=== PATIENT | male | born 1950 | race Caucasian/White ===

== ENCOUNTER 2016-10-17 19:18 | Inpatient (IN) | payer OTHER ==
[~2016-10-17] VITALS: Ht 162.6 cm; Wt 59.0 kg
[2016-10-17] MEDS ORDERED: NS 1000ml 1,600 ML IVLG ONE (19:30)
--- NOTE | 2016-10-17 19:49 | Emergency Room Report ---
History of Present Illness General Chief Complaint: Abnormal Labs Source: Medical Record (ZEYNEP RAI D.O.) Present Illness HPI Patient present with complaints of abnormal blood work Patient from nursing facility has a tracheostomy and vent dependent Patient was found to have a high white blood for count Patient himself is nonverbal this does significantly limit the history of present illness There was no reports of vomiting or diarrhea Patient has a feeding tube in place Unknown regarding fever unknown regarding rash (ZEYNEP RAI D.O.) Allergies: Coded Allergies: No Known Allergies (Unverified , 10/17/16) Patient History Limited by: medical condition Pertinent Family History: unable to obtain Reviewed Nursing Documentation: PMH: Agreed, PSxH: Agreed (ZEYNEP RAI D.O.) Nursing Documentation-PMH Hx Diabetes: Yes Hx Seizures: Yes (ZEYNEP RAI D.O.) Review of Systems All Other Systems: limited - Other than the ones mentioned in the history of present illness all others are reviewed however they do stay limited due to the patient's mental status (ZEYNEP RAI D.O.) Physical Exam Vital Signs Date Time Temp Pulse Resp B/P Pulse Ox O2 Delivery O2 Flow Rate FiO2 10/17/16 19:19 117 14 103/67 98 Mechanical Ventilator 5.0 10/17/16 19:32 40 Sp02 EP Interpretation: reviewed, normal General Appearance: other - unresponsive, Chronically Ill Head: other - Patient has multiple deformities of the scalp Eyes: bilateral eye other - Patient has lack of corneal reflex ENT: no angioedema, other - Tracheostomy midline Neck: other - No obvious step-offs, patient does not move neck to command Respiratory: crackles - diffusely in both lower lobes Cardiovascular #1: no edema, no gallop, tachycardia Gastrointestinal: other - Mildly distended however soft feeding tube in place bowel sounds noted, Musculoskeletal: other - Patient's chronic debilitated not moving extremities to stimuli Neurologic: other - GCS is 3 unresponsive, no verbal or physical stimuli Skin: pallor Lymphatic: no adenopathy (ZEYNEP RAI D.O.) Medical Decision Making Diagnostic Impression: Primary Impression: Leukocytosis Additional Impressions: Pneumonia Severe sepsis ER Course Patient is a fairly complex patient with multiple differential to consideration including but not limited to cardiac cardiopulmonary and vascular emergencies Given the patient's presentation IV hydration and antibiotic, along with septic workup was initiated Patient has high white blood cell count lactic acid is 5 Patient had evidence of organ injury Placing the patient in to severe sepsis criteria Patient limited to high level of care for continued care Labs Test 10/17/16 19:30 10/17/16 20:05 White Blood Count 26.3 K/UL (4.8-10.8) Red Blood Count 2.59 M/UL (4.70-6.10) Hemoglobin 9.2 G/DL (14.2-18.0) Hematocrit 27.0 % (42.0-52.0) Mean Corpuscular Volume 104 FL (80-99) Mean Corpuscular Hemoglobin 35.8 PG (27.0-31.0) Mean Corpuscular Hemoglobin Concent 34.3 G/DL (32.0-36.0) Red Cell Distribution Width 18.4 % (11.6-14.8) Platelet Count 252 K/UL (150-450) Mean Platelet Volume 6.6 FL (6.5-10.1) Neutrophils (%) (Auto) % (45.0-75.0) Lymphocytes (%) (Auto) % (20.0-45.0) Monocytes (%) (Auto) % (1.0-10.0) Eosinophils (%) (Auto) % (0.0-3.0) Basophils (%) (Auto) % (0.0-2.0) Prothrombin Time 13.0 SEC (9.30-11.50) Prothromb Time International Ratio 1.3 (0.9-1.1) Activated Partial Thromboplast Time 24 SEC (23-33) Sodium Level 153 mEQ/L (135-145) Potassium Level 3.4 mEQ/L (3.4-4.9) Chloride Level 106 mEQ/L (98-107) Carbon Dioxide Level 30 mEQ/L (20-30) Anion Gap 17 (5-15) Blood Urea Nitrogen 75 mg/dL (7-23) Creatinine 0.7 mg/dL (0.7-1.2) Estimat Glomerular Filtration Rate > 60 mL/min (>60) Glucose Level 79 mg/dL (74-106) Lactic Acid Level 5.00 mmol/L (0.66-2.22) Calcium Level 9.2 mg/dL (8.6-10.2) Phosphorus Level 1.8 mg/dL (2.5-4.8) Magnesium Level 2.0 mg/dL (1.7-2.5) Total Bilirubin 0.4 mg/dL (0.0-1.2) Aspartate Amino Transf (AST/SGOT) 200 U/L (5-40) Alanine Aminotransferase (ALT/SGPT) 283 U/L (3-41) Alkaline Phosphatase 180 U/L (40-129) Total Creatine Kinase 34 U/L (38-174) Creatine Kinase MB 2.9 ng/mL (< 6.7) Creatine Kinase MB Relative Index 8.5 Troponin I < 0.30 ng/mL (<=0.30) Pro-B-Type Natriuretic Peptide 3071 pg/mL (0-125) Total Protein 7.2 g/dL (6.6-8.7) Albumin 2.2 g/dL (3.5-5.2) Globulin 5.0 g/dL Albumin/Globulin Ratio 0.4 (1.0-2.7) Lipase 11 U/L (< 60) Urine Color Yellow Urine Appearance Clear Urine pH 5 (4.5-8.0) Urine Specific [place] 1.010 (1.005-1.035) Urine Protein 3+ (NEGATIVE) Urine Glucose (UA) Negative (NEGATIVE) Urine Ketones Negative (NEGATIVE) Urine Occult Blood 2+ (NEGATIVE) Urine Nitrite Negative (NEGATIVE) Urine Bilirubin Negative (NEGATIVE) Urine Urobilinogen 1 MG/DL (0.0-1.0) Urine Leukocyte Esterase 1+ (NEGATIVE) Urine RBC 2-4 /HPF (0 - 0) Urine WBC 0-2 /HPF (0 - 0) Urine Squamous Epithelial Cells None /LPF (NONE/OCC) Urine Bacteria Few /HPF (NONE) (ZEYNEP RAI D.O.) ER Course Patient signed out to me. He's waiting for bed. CT scan show effusion and infiltrate. Antibiotic started. Patient fluid given. (IVY GALEAS M.D.) Rhythm Strip Diag. Results EP Interpretation: yes Rate: 90 Rhythm: NSR, no PVC's, no ectopy (ZEYNEP RAI D.O.) Chest X-Ray Diagnostic Results EP Interpretation: Yes Findings: no pneumothorax, other - Left lower lobe effusion /pneumonia, prolonged cardiomegaly Number of Views: 1 (ZEYNEP RAI D.O.) CT/MRI/US Diagnostic Results CT/MRI/US Diagnostic Results : Impression cT abdomen pelvisImpression: Moderate pericardial effusion Bilateral pleural effusions and posterior basilar atelectasis and/or pneumonia. Bilateral renal hypodensities. Evaluation is in indeterminate Atherosclerotic vascular disease [place] catheter and gastrostomy good position. Cysts anasarca Old bilateral rib trauma (ZEYNEP RAI D.O.) CT/MRI/US Diagnostic Results : Imaging Test Ordered: CT abd/pelvis Impression Read by radiologist. Moderate to pericardial effusion. b/l infiltrates. (IVY GALEAS M.D.) Last Vital Signs Date Time Temp Pulse Resp B/P Pulse Ox O2 Delivery O2 Flow Rate FiO2 10/17/16 19:32 118 25 40 10/17/16 19:19 103/67 98 Mechanical Ventilator 5.0 Status: improved (ZEYNEP RAI D.O.) Disposition: ADMITTED INPATIENT Condition: Critical ZEYNEP RAI D.O. October 17, 2016 19:49 IVY GALEAS M.D. October 17, 2016 23:20
[2016-10-17 19:50] VITALS: BP 101/72
[2016-10-17 20:23] LABS: APPEARANCE,URINE CLEAR; KETONES,URINE NEGATIVE (NEGATIVE); LEUKOCYTE ESTERASE ,URINE 1+ (NEGATIVE); NITRITE,URINE NEGATIVE (NEGATIVE); PH,URINE 5 (4.5-8.0); PROTEIN,URINE 3+ (NEGATIVE); UROBILINOGEN,URINE 1 MG/DL (0.0-1.0)
[2016-10-17 20:23] LABS: INR 1.3 (0.9-1.1); MEAN CORPUSCULAR HEMOGLOBIN 35.8 PG (27.0-31.0); MEAN CORPUSCULAR HGB CONC 34.3 G/DL (32.0-36.0); MEAN CORPUSCULAR VOLUME 104 FL (80-99); MEAN PLATELET VOLUME 6.6 FL (6.5-10.1); PLATELET COUNT 252 K/UL (150-450); RED BLOOD COUNT 2.59 M/UL (4.70-6.10); RED CELL DISTRIBUTION WIDTH 18.4 % (11.6-14.8)
[2016-10-17] MEDS ORDERED: ALBUTEROL2.5 MG/3 M INH (20:26)
[2016-10-17] MEDS ORDERED: ATIVAN2 MG ORAL (20:26)
[2016-10-17] MEDS ORDERED: HUMALOG100 UNIT/4 SUBQ (20:26)
[2016-10-17] MEDS ORDERED: BACLOFEN10 MG ORAL (20:27)
[2016-10-17 20:28] LABS: WHITE BLOOD COUNT 26.3 K/UL (4.8-10.8)
[2016-10-17 20:33] LABS: BACTERIA,URINE FEW /HPF; WBC,URINE 0-2 /HPF (0 - 0)
[2016-10-17 20:39] LABS: TROPONIN I < 0.30 ng/mL (<=0.30)
[2016-10-17 20:43] LABS: ALANINE AMINOTRANSFERASE 283 U/L (3-41); ALBUMIN/GLOBULIN RATIO 0.4 (1.0-2.7); ANION GAP 17 (5-15); ASPARTATE AMINO TRANSFERASE 200 U/L (5-40); CALCIUM 9.2 mg/dL (8.6-10.2); CARBON DIOXIDE 30 mEQ/L (20-30); CHLORIDE 106 mEQ/L (98-107); CREATININE 0.7 mg/dL (0.7-1.2); GLOMERULAR FILTRATION RATE > 60 mL/min (>60); HEMOLYSIS 2; LIPASE 11 U/L (< 60); PHOSPHORUS 1.8 mg/dL (2.5-4.8); POTASSIUM 3.4 mEQ/L (3.4-4.9); SODIUM 153 mEQ/L (135-145); TOTAL PROTEIN 7.2 g/dL (6.6-8.7)
[2016-10-17 20:46] LABS: CKMB 2.9 ng/mL (< 6.7)
[2016-10-17 20:56] LABS: REFLEX LACTIC ACID YES OR NO YES
[2016-10-17] MEDS ORDERED: Acetaminophen 650mg/20.3ml GT ONE (21:00)
[2016-10-17] MEDS ORDERED: Morphine Sulfate 4mg/ml Inj IVP PRN (21:45)
[2016-10-17] MEDS ORDERED: Vancomycin 1 GM in D5W 275 ML IVPB ONE (21:45)
[2016-10-17] MEDS ORDERED: LORazepam Inj 2mg/ml 1ml IV PRN (21:45)
[2016-10-17] MEDS ORDERED: Miralax 17gm pkt ORAL PRN (21:45)
[2016-10-17] MEDS ORDERED: DuoNeb 0.5-3(2.5)mg/3ml neb HHN PRN (21:45)
[2016-10-17] MEDS ORDERED: Piperacillin/Tazobactam 3.375 GM in NS 110 ML IVPB ONE (21:45)
[2016-10-17 21:49] LABS: EOSINOPHILS % (MANUAL) 1 % (0-3); LYMPHOCYTES % (MANUAL) 6 % (20-45); NEUTROPHILS % (MANUAL) 90 % (45-75); TOTAL CELLS COUNTED 100
[2016-10-17 21:50] LABS: ANISOCYTOSIS 1+; BAND NEUTROPHILS % (MANUAL) 0 % (0-8); BASOPHILS % (MANUAL) 0 % (0-2); HYPOCHROMASIA 1+; PLATELET ESTIMATE ADEQUATE; PLATELET MORPHOLOGY NORMAL
[2016-10-17] MEDS ORDERED: Zosyn 3.375gm inj ONE ×2 (22:09→22:15)
[2016-10-17 22:23] VITALS: BP 97/63
[2016-10-17] MEDS ORDERED: Vancomycin 1gm inj IVPB ONE (22:29)
[2016-10-18] VITALS: BP 88/59
[2016-10-18 04:00] VITALS: BP 101/66
[2016-10-18] MEDS ORDERED: Zosyn 3.375gm inj ONE (04:54)
[2016-10-18] MEDS: Piperacillin/Tazobactam 3.375 GM in NS 110 ML IVPB SCH ×3 (05:15→21:31)
[2016-10-18] MEDS: NovoLOG Insulin Flexpen SUBQ SCH ×4 (05:15→21:00)
[2016-10-18 05:24] LABS: MEAN CORPUSCULAR HEMOGLOBIN 33.7 PG (27.0-31.0); MEAN CORPUSCULAR HGB CONC 32.7 G/DL (32.0-36.0); MEAN CORPUSCULAR VOLUME 103 FL (80-99); PLATELET COUNT 210 K/UL (150-450); RED BLOOD COUNT 2.48 M/UL (4.70-6.10); RED CELL DISTRIBUTION WIDTH 18.4 % (11.6-14.8); WHITE BLOOD COUNT 16.5 K/UL (4.8-10.8)
[2016-10-18 05:59] LABS: ANION GAP 16 (5-15); CALCIUM 8.6 mg/dL (8.6-10.2); CARBON DIOXIDE 29 mEQ/L (20-30); CHLORIDE 105 mEQ/L (98-107); CREATININE 0.7 mg/dL (0.7-1.2); GLOMERULAR FILTRATION RATE > 60 mL/min (>60); HEMOLYSIS 4; PHOSPHORUS 2.1 mg/dL (2.5-4.8); POTASSIUM 3.1 mEQ/L (3.4-4.9); SODIUM 150 mEQ/L (135-145)
[2016-10-18 08:00] VITALS: BP 96/68
[2016-10-18] MEDS: Pantoprazole Inj IV SCH (08:53)
[2016-10-18 10:05] LABS: ANISOCYTOSIS 2+; BAND NEUTROPHILS % (MANUAL) 3 % (0-8); BASOPHILS % (MANUAL) 0 % (0-2); EOSINOPHILS % (MANUAL) 1 % (0-3); LYMPHOCYTES % (MANUAL) 7 % (20-45); MACROCYTES 1+; NEUTROPHILS % (MANUAL) 86 % (45-75); PLATELET ESTIMATE ADEQUATE; PLATELET MORPHOLOGY NORMAL; POLYCHROMASIA 1+; TOTAL CELLS COUNTED 100
[2016-10-18 10:06] LABS: HYPOCHROMASIA 1+
[2016-10-18] MEDS: Vancomycin 750mg/D5W 275ml IVPB SCH ×4 (10:16→23:00)
--- NOTE | 2016-10-18 10:22 | Diagnostic Imaging Report ---
Indication: Abdominal pain Technique: Continuous helical transaxial imaging of the abdomen and pelvis was obtained from the lung bases to the pubic symphysis. No intravenous contrast was administered. Coronal 2-D reformats were also obtained. Total Dose length Product (DLP): [address] Dose Index Volume (CTDIvol): 12.3 mGy Comparison: none Findings: There is a moderate-sized pericardial effusion. There are are bilateral pleural effusions present. Dense left basilar consolidation versus atelectasis noted. Coronary calcifications demonstrated. Gastrostomy noted. The spleen is prominent. Gallbladder is not visualized. There is no nephrolithiasis. Bilateral hypodensities are noted within the kidneys. No evidence of bowel obstruction. No free air demonstrated. Small bilateral inguinal hernias are present. [place] catheter appears to be in good position. Anasarca noted. Appendix not definitely seen. Old rib fractures are present laterally. Impression: Moderate pericardial effusion Bilateral pleural effusions and posterior basilar atelectasis and/or pneumonia. Bilateral renal hypodensities. Evaluation is in indeterminate Atherosclerotic vascular disease [place] catheter and gastrostomy good position. Cysts anasarca Old bilateral rib trauma The CT scanner at [facility] is accredited by the [employer] and the scans are performed using dose optimization techniques as appropriate to a performed exam including Automatic Exposure control.
--- NOTE | 2016-10-18 11:07 | Consultation ---
History of Present Illness General Date patient seen: October 18, 2016 Chief Complaint: Abnormal Labs Reason for Consultation: management of respiratory failure Present Illness HPI 66 year old male with hx of Chronic Respiratory treatment, COPD, trach/peg, halfway resident VANITA with CC of high white blood for count and fever. Pt can't give any history. Allergies: Coded Allergies: No Known Allergies (Unverified , 10/17/16) Medication History Scheduled Baclofen* (Baclofen*), 10 MG ORAL TID, (Reported) Insulin Lispro (Humalog), 0 SUBQ EVERY 6 HOURS, (Reported) Lorazepam* (Ativan*), 2 MG ORAL EVERY 4 HOURS, (Reported) Scheduled PRN Albuterol Sulfate* (Albuterol Sulfate Hhn*), 3 ML INH Q6H PRN for Shortness of Breath, (Reported) Patient History Healthcare decision maker Ariana Alvarez Resuscitation status Full Code Advanced Directive on File No Past Medical/Surgical History Past Medical/Surgical History: (1) Chronic respiratory failure (2) Diabetes mellitus Social History Social History: (1) correction resident Review of Systems All Other Systems: negative except mentioned in HPI Physical Exam General Appearance: WD/WN, no apparent distress Lines, tubes and drains: peripheral, central line HEENT: normocephalic Neck: non-tender, normal alignment Respiratory/Chest: chest wall non-tender, lungs clear Cardiovascular/Chest: normal peripheral pulses, normal rate Abdomen: normal bowel sounds Genitourinary/Rectal: normal genital exam Extremities: normal range of motion Skin Exam: normal pigmentation Neurologic: supervisor claims II-XII grossly normal Last 24 Hour Vital Signs Date Time Temp Pulse Resp B/P Pulse Ox O2 Delivery O2 Flow Rate FiO2 10/18/16 09:15 99 34 35 10/18/16 08:00 35 10/18/16 08:00 98.1 101 26 96/68 96 Mechanical Ventilator 40 10/18/16 08:00 76 10/18/16 06:51 100 18 40 10/18/16 05:27 89 28 40 10/18/16 04:00 89 10/18/16 04:00 98.0 92 22 101/66 99 Mechanical Ventilator 40 10/18/16 04:00 40 10/18/16 03:33 85 22 40 10/18/16 01:12 98 22 40 10/18/16 00:00 79 10/18/16 00:00 97.4 86 21 88/59 100 Mechanical Ventilator 40 10/17/16 23:19 101 18 40 10/17/16 22:45 101.2 99 18 97/63 100 Mechanical Ventilator 5.0 40 10/17/16 22:23 99 18 97/63 100 Mechanical Ventilator 5.0 40 10/17/16 21:37 101.2 10/17/16 21:15 116 24 40 10/17/16 20:00 5.0 40 10/17/16 19:50 101.2 99 22 101/72 100 Mechanical Ventilator 5.0 40 10/17/16 19:32 118 25 40 10/17/16 19:19 117 14 103/67 98 Mechanical Ventilator 5.0 Intake and Output 10/17/16 10/18/16 19:00 07:00 Intake Total 2422.500 ml Output Total 300 ml Balance 2122.500 ml Intake Oral 0 ml Free Water 200 ml IV Total 2012.500 ml Tube Feeding 210 ml Output Urine Total 300 ml Laboratory Tests Test 10/17/16 19:30 10/17/16 20:05 10/17/16 21:04 10/18/16 03:50 White Blood Count 26.3 K/UL (4.8-10.8) *H 16.5 K/UL (4.8-10.8) H Red Blood Count 2.59 M/UL (4.70-6.10) L 2.48 M/UL (4.70-6.10) L Hemoglobin 9.2 G/DL (14.2-18.0) L 8.4 G/DL (14.2-18.0) L Hematocrit 27.0 % (42.0-52.0) L 25.6 % (42.0-52.0) L Mean Corpuscular Volume 104 FL (80-99) H 103 FL (80-99) H Mean Corpuscular Hemoglobin 35.8 PG (27.0-31.0) H 33.7 PG (27.0-31.0) H Mean Corpuscular Hemoglobin Concent 34.3 G/DL (32.0-36.0) 32.7 G/DL (32.0-36.0) Red Cell Distribution Width 18.4 % (11.6-14.8) H 18.4 % (11.6-14.8) H Platelet Count 252 K/UL (150-450) 210 K/UL (150-450) Mean Platelet Volume 6.6 FL (6.5-10.1) 7.0 FL (6.5-10.1) Neutrophils (%) (Auto) % (45.0-75.0) % (45.0-75.0) Lymphocytes (%) (Auto) % (20.0-45.0) % (20.0-45.0) Monocytes (%) (Auto) % (1.0-10.0) % (1.0-10.0) Eosinophils (%) (Auto) % (0.0-3.0) % (0.0-3.0) Basophils (%) (Auto) % (0.0-2.0) % (0.0-2.0) Differential Total Cells Counted 100 100 Neutrophils % (Manual) 90 % (45-75) H 86 % (45-75) H Lymphocytes % (Manual) 6 % (20-45) L 7 % (20-45) L Monocytes % (Manual) 3 % (1-10) 3 % (1-10) Eosinophils % (Manual) 1 % (0-3) 1 % (0-3) Basophils % (Manual) 0 % (0-2) 0 % (0-2) Band Neutrophils 0 % (0-8) 3 % (0-8) Platelet Estimate Adequate Adequate Platelet Morphology Normal Normal Hypochromasia 1+ 1+ Anisocytosis 1+ 2+ Prothrombin Time 13.0 SEC (9.30-11.50) H Prothromb Time International Ratio 1.3 (0.9-1.1) H Activated Partial Thromboplast Time 24 SEC (23-33) Sodium Level 153 mEQ/L (135-145) H 150 mEQ/L (135-145) H Potassium Level 3.4 mEQ/L (3.4-4.9) 3.1 mEQ/L (3.4-4.9) L Chloride Level 106 mEQ/L (98-107) 105 mEQ/L (98-107) Carbon Dioxide Level 30 mEQ/L (20-30) 29 mEQ/L (20-30) Anion Gap 17 (5-15) H 16 (5-15) H Blood Urea Nitrogen 75 mg/dL (7-23) H 74 mg/dL (7-23) H Creatinine 0.7 mg/dL (0.7-1.2) 0.7 mg/dL (0.7-1.2) Estimat Glomerular Filtration Rate > 60 mL/min (>60) > 60 mL/min (>60) Glucose Level 79 mg/dL (74-106) 86 mg/dL (74-106) Lactic Acid Level 5.00 mmol/L (0.66-2.22) H 3.80 mmol/L (0.66-2.22) H Calcium Level 9.2 mg/dL (8.6-10.2) 8.6 mg/dL (8.6-10.2) Phosphorus Level 1.8 mg/dL (2.5-4.8) L 2.1 mg/dL (2.5-4.8) L Magnesium Level 2.0 mg/dL (1.7-2.5) Total Bilirubin 0.4 mg/dL (0.0-1.2) Aspartate Amino Transf (AST/SGOT) 200 U/L (5-40) H Alanine Aminotransferase (ALT/SGPT) 283 U/L (3-41) H Alkaline Phosphatase 180 U/L (40-129) H Total Creatine Kinase 34 U/L (38-174) L Creatine Kinase MB 2.9 ng/mL (< 6.7) Creatine Kinase MB Relative Index 8.5 Troponin I < 0.30 ng/mL (<=0.30) Pro-B-Type Natriuretic Peptide 3071 pg/mL (0-125) H Total Protein 7.2 g/dL (6.6-8.7) Albumin 2.2 g/dL (3.5-5.2) L 1.9 g/dL (3.5-5.2) L Globulin 5.0 g/dL Albumin/Globulin Ratio 0.4 (1.0-2.7) L Lipase 11 U/L (< 60) Urine Color Yellow Urine Appearance Clear Urine pH 5 (4.5-8.0) Urine Specific [place] 1.010 (1.005-1.035) Urine Protein 3+ (NEGATIVE) H Urine Glucose (UA) Negative (NEGATIVE) Urine Ketones Negative (NEGATIVE) Urine Occult Blood 2+ (NEGATIVE) H Urine Nitrite Negative (NEGATIVE) Urine Bilirubin Negative (NEGATIVE) Urine Urobilinogen 1 MG/DL (0.0-1.0) H Urine Leukocyte Esterase 1+ (NEGATIVE) H Urine RBC 2-4 /HPF (0 - 0) H Urine WBC 0-2 /HPF (0 - 0) Urine Squamous Epithelial Cells None /LPF (NONE/OCC) Urine Bacteria Few /HPF (NONE) Polychromasia 1+ Macrocytosis 1+ Height (Feet): 5 Height (Inches): 4.00 Weight (Pounds): 130 Medications Current Medications Medications (Trade) Dose Ordered Sig/Yi Route PRN Reason Start Time Stop Time Status Last Admin Dose Admin Acetaminophen (Tylenol) 650 mg Q4H PRN ORAL FEVER 10/17/16 21:45 11/16/16 21:44 Albuterol/ Ipratropium (DuoNeb 0.5-3(2.5)mg/3ml) 3 ml Q4H PRN HHN Shortness of Breath 10/17/16 21:45 10/22/16 21:44 Dextrose STAT PRN IV Hypoglycemia 10/17/16 21:45 11/16/16 21:44 10/18/16 00:28 Heparin Sodium (Porcine) (Heparin 5000 units/ml) 5,000 units EVERY 12 HOURS SUBQ 10/18/16 22:00 11/17/16 21:59 Insulin Aspart (NovoLOG) BEFORE MEALS AND HS SUBQ 10/18/16 06:30 11/17/16 06:29 Lorazepam (Ativan 2mg/ml 1ml) 2 mg Q2H PRN IV For Anxiety 10/17/16 21:45 10/24/16 21:44 Morphine Sulfate (Morphine Sulfate) 4 mg Q4H PRN IVP Severe Pain (Pain Scale 7-10) 10/17/16 21:45 10/24/16 21:44 Ondansetron HCl (Zofran) 4 mg Q6H PRN IVP Nausea & Vomiting 10/17/16 21:45 11/16/16 21:44 Pantoprazole (Protonix) 40 mg DAILY IV 10/18/16 09:00 11/17/16 08:59 10/18/16 08:53 Piperacillin Sod/ Tazobactam Sod/ Sodium Chloride (Zosyn/Sodium Chloride) 110 ml @ 27.5 mls/hr Q8H IVPB 10/18/16 06:00 10/25/16 05:59 10/18/16 05:15 Polyethylene Glycol (Miralax) 17 gm DAILYPRN PRN ORAL Constipation 10/17/16 21:45 11/16/16 21:44 Vancomycin HCl 1 ea 1 ea DAILY PRN MISC PRN RX PROTOCOL 10/17/16 22:00 11/16/16 21:59 Vancomycin HCl/ Dextrose (Vancomycin/D5W) 275 ml @ 183.708 mls/hr Q12H IVPB 10/18/16 10:30 10/23/16 10:29 10/18/16 10:16 Assessment/Plan Problem List: (1) Acute on chronic respiratory failure ICD Codes: J96.20 - Acute and chronic respiratory failure, unspecified whether with hypoxia or hypercapnia SNOMED: 09285226, 62085191 (2) Pneumonia ICD Codes: J18.9 - Pneumonia, unspecified organism SNOMED: 849884133 (3) Sepsis ICD Codes: A41.9 - Sepsis, unspecified organism SNOMED: 75386406, 046935951 (4) Diabetes mellitus ICD Codes: E11.9 - Type 2 diabetes mellitus without complications SNOMED: 84262750 (5) G tube feedings ICD Codes: Z93.1 - Gastrostomy status SNOMED: 181603915, 539625662 Assessment/Plan saldivar culturee IV antibiotics gtube feeding sliding scale check electrolytes RAMÓN MOSS October 18, 2016 11:07
--- NOTE | 2016-10-18 11:16 | Diagnostic Imaging Report ---
Indication: Chest Pain Comparison: None A single view chest radiograph was obtained. Findings: There is evidence of left pleural effusion. Underlying parenchymal disease also suspected and may be atelectasis or pneumonia. Heart size is normal. There is a tracheostomy present. Bones are osteopenic. Impression: Suspected left pleural effusion and underlying left basilar pneumonia or atelectasis
[2016-10-18 12:00] VITALS: BP 103/65
--- NOTE | 2016-10-18 12:59 | History & Physical ---
History and Physical History & Physicial Dictated for Int Med-Dr Kay no. [id number]. JEAN CARLOS SANABRIA October 18, 2016 12:59
[2016-10-18 16:00] VITALS: BP 94/60
--- NOTE | 2016-10-18 16:10 | Wound Care Consultation ---
Wound Assessment Wound Assessment #1: Wound Present on Admission: Yes New Wound: No Status Change of Wound: No Wound Location Body Site Modif: mid Wound Location Body Site: sacral Wound Type: pressure ulcer Sofi Test: Does not Sofi Pressure Ulcer Stage: IV/unstageable Wound Thickness: Full Thickness Wound Length: 10.0 Wound Width: 8.5 Wound Depth: utd Percent of Wound Bed Yellow/Wh: 10 Percent of Wound Black/Brown: 90 Wound Drainage Description: Serosanguineous Wound Drainage Amount: Moderate Wound Drainage Odor: None/Absent Tissue Surrounding Wound: Macerated Wound General Appearance: Blackened, Draining, Necrotic Wound Assessment #2: Wound Number: #2 Wound Present on Admission: Yes New Wound: No Status Change of Wound: No Wound Location Body Site Modif: left, lower Wound Location Body Site: abdomen Sofi Test: Does not Sofi Traumatic Injury Wounds: Skin Tear Wound Thickness: Partial Thickness Wound Length: 1.0 Wound Width: 1.0 Wound Depth: less than 0.1 Percent of Wound [employer]/Red: 100 Wound Drainage Description: Serosanguineous Wound Drainage Amount: Scant Wound Drainage Odor: None/Absent Tissue Surrounding Wound: Intact Wound General Appearance: Reddened Wound Comment #1 Sacral unstageable pressure ulcer #2 Right lower abdominal area skin tear Recommendation -Sacral pressure ulcer Cleanse with saline, pat dry, apply Therahoney gel to wound bed, apply skin barrier film to periwound area, cover with Biatain silicone daily and PRN soiled /dislodged -Skin tear on right lower abdominal area Cleanse with saline, pat dry, apply Adaptic, cover with bordered gauze daily and PRN soiled/dislodged -Keep clean and dry -Turn and reposition -Offload both heels -Heel protector on both heels -Low air loss mattress -Optimize nutrition -Assess and f/u accordingly for any changes BETO LEE RN October 18, 2016 16:10
--- NOTE | 2016-10-18 20:01 | History and Physical Report ---
DATE OF ADMISSION: 10/17/[address] Kay. CHIEF COMPLAINT: The patient is a 66-year-old white male with history of anoxic brain injury secondary to cardiopulmonary arrest, who presents with chief complaint of abnormal labs. HISTORY OF PRESENT ILLNESS: The patient is a resident of [facility]. The patient himself is on the ventilator and is unable to contribute much to the History and Physical. Much of the History and Physical is obtained from the patient's chart from [facility]. The patient was sent to [place] emergency room for "abnormal labs". Notes from the facility states his white count is 25,000. The patient was found to be in respiratory distress. A chest x-ray revealed bilateral basilar pneumonia. The patient was admitted for sepsis and bilateral lower lobe pneumonia. REVIEW OF SYSTEMS: Unable to assess secondary to the patient's mental status. PAST MEDICAL HISTORY: Significant for 1. Chronic respiratory failure status post tracheostomy. 2. Vent dependence. 3. Diabetes mellitus type 2. 4. Peripheral vascular disease. 5. History of cardiopulmonary arrest. 6. Seizure disorder. 7. Chronic systolic congestive heart failure. 8. Anoxic brain injury. 9. Dysphagia status post PEG placement. 10. Neurogenic bladder. 11. Sacral decubitus ulcer. PAST SURGICAL HISTORY: Significant for 1. Tracheostomy. 2. Percutaneous endoscopic gastrostomy placement. MEDICATIONS: Current medications 1. Humalog sliding scale before meals and at bedtime. 2. DuoNeb nebulized q.4 h. p.r.n. shortness of breath. 3. Ativan 2 mg one tablet tablet per G-tube q.4 h. p.r.n. 4. Baclofen 10 mg one tablet per G-tube three times daily. 5. Cranberry juice extract one caplet per G-tube daily. ALLERGIES: No known drug allergies. SOCIAL HISTORY: The patient is resident of [facility] care home facility. The patient is not a current smoker. The patient does not drink alcohol. PHYSICAL EXAMINATION: GENERAL: The patient is a thin-appearing female, who is intubated and sedated. VITAL SIGNS: Temperature 98.1 degrees, respirations 18-34, pulse 99-104, and blood pressure 96/68. HEENT: Within normal limits. CHEST: Coarse breath sounds bilaterally with faint crackles in the bilateral bases. Otherwise, clear to auscultation without wheezes or rales. CARDIOVASCULAR: Tachycardic, regular rhythm. S1 and S2 are normal without murmurs, rubs, or gallops. ABDOMEN: Soft, nontender, and nondistended. Positive bowel sounds. No evidence of hepatosplenomegaly. Currently, no rebound or guarding. EXTREMITIES: Negative for clubbing, cyanosis, or edema. RECTAL AND GENITAL: Not performed. LABORATORY AND DIAGNOSTIC DATA: WBC 26.3, hemoglobin 9.2, hematocrit 27.0 and platelets 252,000. Sodium 153, potassium 3.4, chloride 106, CO2 30, BUN 25, creatinine 0.7, and glucose 79. Lactic acid 5.0. Urinalysis showed 3+ protein and 2+ occult blood with 2-4 RBCs. A chest x-ray revealed left basilar pneumonia and pleural effusion. ASSESSMENT: This is a 66-year-old white male 1. Leukocytosis. 2. Probable sepsis. 3. Left basilar pneumonia. 4. Respiratory failure, status post tracheostomy. 5. Seizure disorder. 6. Diabetes type 2. 7. Congestive heart failure. 8. Anoxic brain injury. 9. Dysphagia. 10. Sacral decubitus ulcer. TREATMENT: 1. Leukocytosis/sepsis. An Infectious Disease consultation is pending with Dr. Leblanc. The patient has been started empirically on vancomycin and Zosyn. Sputum and blood cultures are pending. 2. Left basilar pneumonia. A Pulmonary consultation is obtained with Dr. Eugenio Quezada. The patient has been started empirically on vancomycin and Zosyn. 3. Respiratory failure. The patient is status post tracheostomy. A Pulmonary consultation with Dr. Eugenio Quezada. 4. Seizure disorder. The patient is currently off medication. 5. Diabetes type 2. The patient has been started on a NovoLog sliding scale. 6. Congestive heart failure. A repeat BMP is pending. 7. Anoxic brain injury. 8. Dysphagia. The patient is status post PEG placement. 9. Sacral decubitus ulcer. The patient will receive wound care. Rodriguez Jackson M.D. DR: AMNA JOB#: [id number] CC:
[2016-10-18] MEDS: Heparin 5000 units/ml inj SUBQ SCH (21:36)
[2016-10-18] MEDS ORDERED: Vancomycin 1 GM in D5W 275 ML IV SCH (23:00)
--- NOTE | 2016-10-19 00:04 | Consultation ---
Consult Note Consult Note ID Dic # [id number] NICKIE VAZQUEZ M.D. October 19, 2016 00:04
[2016-10-19 00:34] VITALS: BP 103/61
[2016-10-19 04:00] VITALS: BP 99/59
--- NOTE | 2016-10-19 05:21 | Consultation ---
DATE OF CONSULTATION: INFECTIOUS DISEASE CONSULTATION CONSULTING PHYSICIAN: Charan Leblanc M.D. REFERRING PHYSICIAN: Eugenio Quezada M.D. REASON FOR CONSULTATION: Evaluation of the patient for sepsis and pneumonia and antibiotics management. HISTORY OF PRESENT ILLNESS: The patient is a 66-year-old male, with multiple medical problems as listed above, who was admitted to this medical center due to respiratory distress and chest x-ray showed bilateral basilar pneumonia. Infectious Disease consultation has been requested for further evaluation of the patient for sepsis and pneumonia. PAST MEDICAL HISTORY: 1. History of ventilator-dependant respiratory failure. 2. Status post PEG. 3. Status post trach. 4. Diabetes. 5. History of cardiopulmonary arrest in the past. 6. Peripheral vascular disease. 7. Seizure disorder. 8. CHF. 9. Anoxic brain injury. 10. Dysphagia. 11. History of neurogenic bladder. 12. History of sacral decubitus. MEDICATIONS: Vancomycin and Zosyn. ALLERGIES: No known drug allergies. SOCIAL HISTORY: The patient lives in a care home. FAMILY HISTORY: Unavailable. REVIEW OF SYSTEMS: Unobtainable. PHYSICAL EXAMINATION: VITAL SIGNS: Pulse 86, respiratory rate 18, and blood pressure 112/58, T-max 101.2 degrees. HEENT: Mild pale conjunctivae. No icterus. NECK: No lymphadenopathy. CHEST: Coarse breathing sounds. HEART: S1 and S2. ABDOMEN: Soft. G-tube in place. No sign of infection, , or discharge at the G-tube site. EXTREMITIES: No cyanosis. NEUROLOGIC: Nonverbal. LABORATORY AND DIAGNOSTIC DATA: White blood cells 26 at the time of admission and today 16.5, hemoglobin 8.4, and platelets 210,000. UA, unremarkable. BUN 72 and creatinine 0.10. AST 200, ALT 283, and alkaline phosphatase 180. Chest x-ray shows left pleural effusion and left basilar pneumonia versus atelectasis. CT of the abdomen, positive pleural effusion, atelectasis, renal hyperdensities. ASSESSMENT: The patient is a 66-year-old male with multiple medical problems, who has been admitted to this medical center due to leukocytosis, sepsis, and pneumonia. Also, the patient has abnormal liver function tests and possibility of cholecystitis. PLAN: 1. We will continue the patient on IV Zosyn and vancomycin. 2. Monitor CBC. 3. Monitor BMP. 4. Monitor cultures (blood, sputum, and urine). 5. Ultrasound of the abdomen for better evaluation of the biliary tract. 6. We will check hepatitis panel. 7. Based on the patient's clinical course and laboratories, we will do further recommendation. Thank you for this consultation. We will follow the patient with you during this hospitalization. Charan Leblanc M.D. DR: CROW JOB#: [id number] CC:
[2016-10-19] MEDS: Piperacillin/Tazobactam 3.375 GM in NS 110 ML IVPB SCH ×3 (05:28→21:38)
[2016-10-19 05:36] LABS: MEAN CORPUSCULAR HEMOGLOBIN 33.4 PG (27.0-31.0); MEAN CORPUSCULAR HGB CONC 32.2 G/DL (32.0-36.0); MEAN CORPUSCULAR VOLUME 104 FL (80-99); PLATELET COUNT 209 K/UL (150-450); RED BLOOD COUNT 2.81 M/UL (4.70-6.10); WHITE BLOOD COUNT 17.5 K/UL (4.8-10.8)
[2016-10-19] MEDS: NovoLOG Insulin Flexpen SUBQ SCH ×3 (05:53→17:42)
[2016-10-19 06:01] LABS: CALCIUM 8.5 mg/dL (8.6-10.2); CARBON DIOXIDE 27 mEQ/L (20-30); CHLORIDE 104 mEQ/L (98-107); CREATININE 0.7 mg/dL (0.7-1.2); GLOMERULAR FILTRATION RATE > 60 mL/min (>60); HEMOLYSIS 11; SODIUM 149 mEQ/L (135-145)
[2016-10-19 06:13] LABS: ANION GAP 18 (5-15)
[2016-10-19 06:16] LABS: POTASSIUM 2.7 mEQ/L (3.4-4.9)
[2016-10-19 08:06] VITALS: BP 98/61
[2016-10-19] MEDS: Pantoprazole Inj IV SCH (08:20)
[2016-10-19] MEDS: Heparin 5000 units/ml inj SUBQ SCH ×2 (08:22→21:38)
[2016-10-19] MEDS: Vancomycin 750mg/D5W 275ml IVPB SCH ×2 (10:29)
[2016-10-19 10:48] LABS: BAND NEUTROPHILS % (MANUAL) 2 % (0-8); BASOPHILS % (MANUAL) 0 % (0-2); EOSINOPHILS % (MANUAL) 0 % (0-3); LYMPHOCYTES % (MANUAL) 5 % (20-45); NEUTROPHILS % (MANUAL) 89 % (45-75); NUCLEATED RED BLOOD CELLS 1 /100 WBC; PLATELET ESTIMATE ADEQUATE; PLATELET MORPHOLOGY NORMAL; TOTAL CELLS COUNTED 100
[2016-10-19 10:49] LABS: ANISOCYTOSIS 2+; HYPOCHROMASIA 1+; MACROCYTES 1+
--- NOTE | 2016-10-19 11:32 | Pulmonology Progress Note ---
Assessment/Plan Problems: (1) Acute on chronic respiratory failure (2) Pneumonia (3) Sepsis (4) Diabetes mellitus (5) G tube feedings Respiratory: monitor respiratory rate, adjust FIO2, CXR Cardiac: continue to monitor HR/BP Renal: F/U I&O, keep IV fluid Infectious Disease: check cultures Gastrointestinal: continue feedings/current rate, hold feedings Endocrine: monitor blood sugar, continue sliding scale insulin Hematologic: monitor H/H, transfuse if hgb<8.5 Neurologic: PRN Ativan, PRN Morphine, keep patient comfortable Affect: PRN ativan Prophylaxis: Protonix, Heparin Disposition: transfer to Notes Reviewed: cardio, renal Discussed with: nurses, consultants, correctional case manager Subjective ROS Limited/Unobtainable: Yes Allergies: Coded Allergies: No Known Allergies (Unverified , 10/17/16) Objective Last 24 Hour Vital Signs Date Time Temp Pulse Resp B/P Pulse Ox O2 Delivery O2 Flow Rate FiO2 10/19/16 11:17 93 21 35 10/19/16 09:05 90 19 35 10/19/16 08:06 97.9 88 22 98/61 98 Mechanical Ventilator 35 10/19/16 08:00 35 10/19/16 06:34 94 15 35 10/19/16 04:47 91 16 35 10/19/16 04:00 82 10/19/16 04:00 35 10/19/16 04:00 98.0 96 21 99/59 100 Mechanical Ventilator 35 10/19/16 03:16 92 17 35 10/19/16 01:16 95 21 35 10/19/16 00:34 99.0 87 22 103/61 97 Mechanical Ventilator 35 10/19/16 00:00 35 10/19/16 00:00 83 10/18/16 23:00 97 22 35 10/18/16 21:45 98.9 10/18/16 21:00 92 21 35 10/18/16 20:00 35 10/18/16 20:00 91 10/18/16 19:30 99 18 35 10/18/16 17:03 97 21 35 10/18/16 17:00 35 10/18/16 16:00 88 10/18/16 16:00 97.2 67 15 94/60 98 Mechanical Ventilator 35 10/18/16 14:51 100 16 35 10/18/16 12:35 104 30 35 5/17/17 12:00 96 10/18/16 12:00 35 10/18/16 12:00 97.7 94 31 103/65 98 Mechanical Ventilator 35 Intake and Output 10/18/16 10/19/16 19:00 07:00 Intake Total 827.500 ml 742.500 ml Output Total 550 ml 500 ml Balance 277.500 ml 242.500 ml IV Total 467.500 ml 412.500 ml Tube Feeding 360 ml 330 ml Output Urine Total 550 ml 500 ml # Bowel Movements 2 General Appearance: cachetic HEENT: normocephalic, atraumatic Respiratory/Chest: chest wall non-tender, crackles/rales Cardiovascular: normal peripheral pulses, normal rate Abdomen: normal bowel sounds, soft, non tender Genitourinary: normal external genitalia Extremities: no cyanosis Skin: no lesions 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 normal, no motor/sensory deficits Microbiology Date/Time Source Procedure Growth Status 10/17/16 19:30 Blood Blood Culture - Preliminary Resulted 10/17/16 19:20 Blood Blood Culture - Preliminary NO GROWTH AFTER 24 HOURS Resulted 10/18/16 04:50 Sacral Swab Gram Stain - Final Resulted 10/18/16 04:50 Wound Culture - Preliminary Gram Negative Bacillus 1 Gram Negative Bacillus 2 Resulted Laboratory Tests 10/19/16 04:30: White Blood Count 17.5H, Red Blood Count 2.81L, Hemoglobin 9.4L, Hematocrit 29.1L, Mean Corpuscular Volume 104H, Mean Corpuscular Hemoglobin 33.4H, Mean Corpuscular Hemoglobin Concent 32.2, Red Cell Distribution Width 19.0H, Platelet Count 209, Mean Platelet Volume 7.0, Neutrophils (%) (Auto) , Lymphocytes (%) (Auto) , Monocytes (%) (Auto) , Eosinophils (%) (Auto) , Basophils (%) (Auto) , Differential Total Cells Counted 100, Neutrophils % ( Manual) 89H, Lymphocytes % (Manual) 5L, Monocytes % (Manual) 4, Eosinophils % ( Manual) 0, Basophils % (Manual) 0, Band Neutrophils 2, Nucleated Red Blood Cells 1, Platelet Estimate Adequate, Platelet Morphology Normal, Hypochromasia 1 +, Anisocytosis 2+, Macrocytosis 1+, Sodium Level 149H, Potassium Level 2.7*L, Chloride Level 104, Carbon Dioxide Level 27, Anion Gap 18H, Blood Urea Nitrogen 64H, Creatinine 0.7, Estimat Glomerular Filtration Rate > 60, Glucose Level 151H , Calcium Level 8.5L, Pro-B-Type Natriuretic Peptide 2331H, Hepatitis A IgM Antibody [Pending], Hepatitis B Surface Antigen [Pending], Hepatitis B Core IgM Antibody [Pending], Hepatitis C Antibody [Pending] 10/19/16 09:50: Vancomycin Level Trough 20.5H Current Medications Medications (Trade) Dose Ordered Sig/Yi Route PRN Reason Start Time Stop Time Status Last Admin Dose Admin Acetaminophen (Tylenol) 650 mg Q4H PRN ORAL FEVER 10/17/16 21:45 11/16/16 21:44 10/18/16 20:46 Albuterol/ Ipratropium (DuoNeb 0.5-3(2.5)mg/3ml) 3 ml Q4H PRN HHN Shortness of Breath 10/17/16 21:45 10/22/16 21:44 Dextrose STAT PRN IV Hypoglycemia 10/17/16 21:45 11/16/16 21:44 10/18/16 00:28 Heparin Sodium (Porcine) (Heparin 5000 units/ml) 5,000 units EVERY 12 HOURS SUBQ 10/18/16 22:00 11/17/16 21:59 10/19/16 08:22 Insulin Aspart (NovoLOG) BEFORE MEALS AND HS SUBQ 10/18/16 06:30 11/17/16 06:29 10/19/16 05:53 Lorazepam (Ativan 2mg/ml 1ml) 2 mg Q2H PRN IV For Anxiety 10/17/16 21:45 10/24/16 21:44 Morphine Sulfate (Morphine Sulfate) 4 mg Q4H PRN IVP Severe Pain (Pain Scale 7-10) 10/17/16 21:45 10/24/16 21:44 Ondansetron HCl (Zofran) 4 mg Q6H PRN IVP Nausea & Vomiting 10/17/16 21:45 11/16/16 21:44 Pantoprazole (Protonix) 40 mg DAILY IV 10/18/16 09:00 11/17/16 08:59 10/19/16 08:20 Piperacillin Sod/ Tazobactam Sod/ Sodium Chloride (Zosyn/Sodium Chloride) 110 ml @ 27.5 mls/hr Q8H IVPB 10/18/16 06:00 10/25/16 05:59 10/19/16 05:28 Polyethylene Glycol (Miralax) 17 gm DAILYPRN PRN ORAL Constipation 10/17/16 21:45 11/16/16 21:44 Vancomycin HCl 1 ea 1 ea DAILY PRN MISC PRN RX PROTOCOL 10/17/16 22:00 11/16/16 21:59 Vancomycin HCl/ Sodium Chloride (Vancomycin/ Sodium Chloride) 110 ml @ 110 mls/hr Q12HR@1100,2300 IVPB 10/19/16 23:00 10/24/16 22:59 RAMÓN MOSS October 19, 2016 11:32
[2016-10-19 12:00] VITALS: BP 100/65
--- NOTE | 2016-10-19 14:31 | Infectious Diseases Prog Note ---
Assessment/Plan Assessment/Plan A: The patient is a 66-year-old male, with Sepsis Pneumonia chest x-ray: bilateral basilar pneumonia Leukocytosis Transaminitis Ro cholecystitis Wnd Cx:GNR x 2 Bacteremia /2 :GPC ? contaminant VDRF Status post PEG Status post trach Diabetes History of cardiopulmonary arrest in the past. Peripheral vascular disease. Seizure disorder. CHF Anoxic brain injury Dysphagia History of neurogenic bladder. History of sacral decubitus. PLAN: continue the patient on IV Zosyn and vancomycin d# 2 Monitor CBC Monitor BMP Monitor cultures (blood, sputum, and urine). Ultrasound of the abdomen Hepatitis panel Subjective Allergies: Coded Allergies: No Known Allergies (Unverified , 10/17/16) Subjective afebrile today , +ve blood cx Objective Vital Signs Last 24 Hour Vital Signs Date Time Temp Pulse Resp B/P Pulse Ox O2 Delivery O2 Flow Rate FiO2 10/19/16 13:18 96 22 35 10/19/16 12:00 97.0 75 18 100/65 98 Mechanical Ventilator 35 10/19/16 11:17 93 21 35 10/19/16 09:05 90 19 35 10/19/16 08:06 97.9 88 22 98/61 98 Mechanical Ventilator 35 10/19/16 08:00 35 10/19/16 06:34 94 15 35 10/19/16 04:47 91 16 35 10/19/16 04:00 82 10/19/16 04:00 35 10/19/16 04:00 98.0 96 21 99/59 100 Mechanical Ventilator 35 10/19/16 03:16 92 17 35 10/19/16 01:16 95 21 35 10/19/16 00:34 99.0 87 22 103/61 97 Mechanical Ventilator 35 10/19/16 00:00 35 10/19/16 00:00 83 10/18/16 23:00 97 22 35 10/18/16 21:45 98.9 10/18/16 21:00 92 21 35 10/18/16 20:00 35 10/18/16 20:00 91 10/18/16 19:30 99 18 35 10/18/16 17:03 97 21 35 10/18/16 17:00 35 10/18/16 16:00 88 10/18/16 16:00 97.2 67 15 94/60 98 Mechanical Ventilator 35 10/18/16 14:51 100 16 35 Height (Feet): 5 Height (Inches): 4.00 Weight (Pounds): 130 HEENT: anicteric Respiratory/Chest: normal breath sounds Cardiovascular: regular rhythm Abdomen: soft, non tender Microbiology Date/Time Source Procedure Growth Status 10/17/16 19:30 Blood Blood Culture - Preliminary Resulted 10/17/16 19:20 Blood Blood Culture - Preliminary NO GROWTH AFTER 24 HOURS Resulted 10/18/16 04:50 Sacral Swab Gram Stain - Final Resulted 10/18/16 04:50 Wound Culture - Preliminary Gram Negative Bacillus 1 Gram Negative Bacillus 2 Resulted Laboratory Tests Test 10/19/16 04:30 10/19/16 09:50 White Blood Count 17.5 K/UL (4.8-10.8) H Red Blood Count 2.81 M/UL (4.70-6.10) L Hemoglobin 9.4 G/DL (14.2-18.0) L Hematocrit 29.1 % (42.0-52.0) L Mean Corpuscular Volume 104 FL (80-99) H Mean Corpuscular Hemoglobin 33.4 PG (27.0-31.0) H Mean Corpuscular Hemoglobin Concent 32.2 G/DL (32.0-36.0) Red Cell Distribution Width 19.0 % (11.6-14.8) H Platelet Count 209 K/UL (150-450) Mean Platelet Volume 7.0 FL (6.5-10.1) Neutrophils (%) (Auto) % (45.0-75.0) Lymphocytes (%) (Auto) % (20.0-45.0) Monocytes (%) (Auto) % (1.0-10.0) Eosinophils (%) (Auto) % (0.0-3.0) Basophils (%) (Auto) % (0.0-2.0) Differential Total Cells Counted 100 Neutrophils % (Manual) 89 % (45-75) H Lymphocytes % (Manual) 5 % (20-45) L Monocytes % (Manual) 4 % (1-10) Eosinophils % (Manual) 0 % (0-3) Basophils % (Manual) 0 % (0-2) Band Neutrophils 2 % (0-8) Nucleated Red Blood Cells 1 /100 WBC Platelet Estimate Adequate Platelet Morphology Normal Hypochromasia 1+ Anisocytosis 2+ Macrocytosis 1+ Sodium Level 149 mEQ/L (135-145) H Potassium Level 2.7 mEQ/L (3.4-4.9) *L Chloride Level 104 mEQ/L (98-107) Carbon Dioxide Level 27 mEQ/L (20-30) Anion Gap 18 (5-15) H Blood Urea Nitrogen 64 mg/dL (7-23) H Creatinine 0.7 mg/dL (0.7-1.2) Estimat Glomerular Filtration Rate > 60 mL/min (>60) Glucose Level 151 mg/dL (74-106) H Calcium Level 8.5 mg/dL (8.6-10.2) L Pro-B-Type Natriuretic Peptide 2331 pg/mL (0-125) H Hepatitis A IgM Antibody Pending Hepatitis B Surface Antigen Pending Hepatitis B Core IgM Antibody Pending Hepatitis C Antibody Pending Vancomycin Level Trough 20.5 ug/mL (5.0-12.0) H Current Medications Medications (Trade) Dose Ordered Sig/Yi Route PRN Reason Start Time Stop Time Status Last Admin Dose Admin Acetaminophen (Tylenol) 650 mg Q4H PRN ORAL FEVER 10/17/16 21:45 11/16/16 21:44 10/18/16 20:46 Albuterol/ Ipratropium (DuoNeb 0.5-3(2.5)mg/3ml) 3 ml Q4H PRN HHN Shortness of Breath 10/17/16 21:45 10/22/16 21:44 Dextrose STAT PRN IV Hypoglycemia 10/17/16 21:45 11/16/16 21:44 10/18/16 00:28 Heparin Sodium (Porcine) (Heparin 5000 units/ml) 5,000 units EVERY 12 HOURS SUBQ 10/18/16 22:00 11/17/16 21:59 10/19/16 08:22 Insulin Aspart (NovoLOG) BEFORE MEALS AND HS SUBQ 10/18/16 06:30 11/17/16 06:29 10/19/16 12:23 Lorazepam (Ativan 2mg/ml 1ml) 2 mg Q2H PRN IV For Anxiety 10/17/16 21:45 10/24/16 21:44 Morphine Sulfate (Morphine Sulfate) 4 mg Q4H PRN IVP Severe Pain (Pain Scale 7-10) 10/17/16 21:45 10/24/16 21:44 Ondansetron HCl (Zofran) 4 mg Q6H PRN IVP Nausea & Vomiting 10/17/16 21:45 11/16/16 21:44 Pantoprazole (Protonix) 40 mg DAILY IV 10/18/16 09:00 11/17/16 08:59 10/19/16 08:20 Piperacillin Sod/ Tazobactam Sod/ Sodium Chloride (Zosyn/Sodium Chloride) 110 ml @ 27.5 mls/hr Q8H IVPB 10/18/16 06:00 10/25/16 05:59 10/19/16 14:11 Polyethylene Glycol (Miralax) 17 gm DAILYPRN PRN ORAL Constipation 10/17/16 21:45 11/16/16 21:44 Potassium Chloride (KCl 10mEq/100ml Premix) 100 ml @ 100 mls/hr Q1H IV 10/19/16 13:00 10/19/16 18:59 10/19/16 14:10 Vancomycin HCl 500 mg/Sodium Chloride 110 ml @ 110 mls/hr Q12HR@1100,2300 IVPB 10/19/16 23:00 10/24/16 22:59 Vancomycin HCl 1 ea 1 ea DAILY PRN MISC PRN RX PROTOCOL 10/17/16 22:00 11/16/16 21:59 NICKIE VAZQUEZ M.D. October 19, 2016 14:31
[2016-10-19 16:00] VITALS: BP 95/61
--- NOTE | 2016-10-19 19:21 | Internal Med Progress Note ---
Subjective Date of Service: October 19, 2016 Physician Name Jean Carlos Sanabria Attending Physician Boris Kay MD Current Medications Medications (Trade) Dose Ordered Sig/Yi Route PRN Reason Start Time Stop Time Status Last Admin Dose Admin Acetaminophen (Tylenol) 650 mg Q4H PRN ORAL FEVER 10/17/16 21:45 11/16/16 21:44 10/18/16 20:46 Albuterol/ Ipratropium (DuoNeb 0.5-3(2.5)mg/3ml) 3 ml Q4H PRN HHN Shortness of Breath 10/17/16 21:45 10/22/16 21:44 Dextrose STAT PRN IV Hypoglycemia 10/17/16 21:45 11/16/16 21:44 10/18/16 00:28 Heparin Sodium (Porcine) (Heparin 5000 units/ml) 5,000 units EVERY 12 HOURS SUBQ 10/18/16 22:00 11/17/16 21:59 10/19/16 08:22 Insulin Aspart (NovoLOG) BEFORE MEALS AND HS SUBQ 10/18/16 06:30 11/17/16 06:29 10/19/16 17:42 Lorazepam (Ativan 2mg/ml 1ml) 2 mg Q2H PRN IV For Anxiety 10/17/16 21:45 10/24/16 21:44 Morphine Sulfate (Morphine Sulfate) 4 mg Q4H PRN IVP Severe Pain (Pain Scale 7-10) 10/17/16 21:45 10/24/16 21:44 Ondansetron HCl (Zofran) 4 mg Q6H PRN IVP Nausea & Vomiting 10/17/16 21:45 11/16/16 21:44 Pantoprazole (Protonix) 40 mg DAILY IV 10/18/16 09:00 11/17/16 08:59 10/19/16 08:20 Piperacillin Sod/ Tazobactam Sod/ Sodium Chloride (Zosyn/Sodium Chloride) 110 ml @ 27.5 mls/hr Q8H IVPB 10/18/16 06:00 10/25/16 05:59 10/19/16 14:11 Polyethylene Glycol (Miralax) 17 gm DAILYPRN PRN ORAL Constipation 10/17/16 21:45 11/16/16 21:44 Vancomycin HCl 1 ea 1 ea DAILY PRN MISC PRN RX PROTOCOL 10/17/16 22:00 11/16/16 21:59 Vancomycin HCl/ Sodium Chloride (Vancomycin/ Sodium Chloride) 110 ml @ 110 mls/hr Q12HR@1100,2300 IVPB 10/19/16 23:00 10/24/16 22:59 Allergies: Coded Allergies: No Known Allergies (Unverified , 10/17/16) ROS Limited/Unobtainable: Yes Subjective 66 YO M admitted with leukocytosis. Now pneumonia and sepsis. Cover for Int Med-Dr Kay. EJ Objective Last Vital Signs Date Time Temp Pulse Resp B/P Pulse Ox O2 Delivery O2 Flow Rate FiO2 10/19/16 19:09 84 22 35 10/19/16 16:00 98.0 95/61 100 Mechanical Ventilator 10/17/16 22:45 5.0 Laboratory Tests Test 10/19/16 04:30 10/19/16 09:50 White Blood Count 17.5 K/UL (4.8-10.8) H Red Blood Count 2.81 M/UL (4.70-6.10) L Hemoglobin 9.4 G/DL (14.2-18.0) L Hematocrit 29.1 % (42.0-52.0) L Mean Corpuscular Volume 104 FL (80-99) H Mean Corpuscular Hemoglobin 33.4 PG (27.0-31.0) H Mean Corpuscular Hemoglobin Concent 32.2 G/DL (32.0-36.0) Red Cell Distribution Width 19.0 % (11.6-14.8) H Platelet Count 209 K/UL (150-450) Mean Platelet Volume 7.0 FL (6.5-10.1) Neutrophils (%) (Auto) % (45.0-75.0) Lymphocytes (%) (Auto) % (20.0-45.0) Monocytes (%) (Auto) % (1.0-10.0) Eosinophils (%) (Auto) % (0.0-3.0) Basophils (%) (Auto) % (0.0-2.0) Differential Total Cells Counted 100 Neutrophils % (Manual) 89 % (45-75) H Lymphocytes % (Manual) 5 % (20-45) L Monocytes % (Manual) 4 % (1-10) Eosinophils % (Manual) 0 % (0-3) Basophils % (Manual) 0 % (0-2) Band Neutrophils 2 % (0-8) Nucleated Red Blood Cells 1 /100 WBC Platelet Estimate Adequate Platelet Morphology Normal Hypochromasia 1+ Anisocytosis 2+ Macrocytosis 1+ Sodium Level 149 mEQ/L (135-145) H Potassium Level 2.7 mEQ/L (3.4-4.9) *L Chloride Level 104 mEQ/L (98-107) Carbon Dioxide Level 27 mEQ/L (20-30) Anion Gap 18 (5-15) H Blood Urea Nitrogen 64 mg/dL (7-23) H Creatinine 0.7 mg/dL (0.7-1.2) Estimat Glomerular Filtration Rate > 60 mL/min (>60) Glucose Level 151 mg/dL (74-106) H Calcium Level 8.5 mg/dL (8.6-10.2) L Pro-B-Type Natriuretic Peptide 2331 pg/mL (0-125) H Hepatitis A IgM Antibody Pending Hepatitis B Surface Antigen Pending Hepatitis B Core IgM Antibody Pending Hepatitis C Antibody Pending Vancomycin Level Trough 20.5 ug/mL (5.0-12.0) H Microbiology Date/Time Source Procedure Growth Status 10/17/16 19:30 Blood Blood Culture - Preliminary Resulted 10/17/16 19:20 Blood Blood Culture - Preliminary NO GROWTH AFTER 24 HOURS Resulted 10/18/16 04:50 Sacral Swab Gram Stain - Final Resulted 10/18/16 04:50 Wound Culture - Preliminary Gram Negative Bacillus 1 Gram Negative Bacillus 2 Resulted Intake and Output 10/18/16 10/19/16 19:00 07:00 Intake Total 827.500 ml 742.500 ml Output Total 550 ml 500 ml Balance 277.500 ml 242.500 ml IV Total 467.500 ml 412.500 ml Tube Feeding 360 ml 330 ml Output Urine Total 550 ml 500 ml # Bowel Movements 2 Objective General: alert, cooperative, no distress, appears stated age Head: normocephalic, without obvious abnormality, atraumatic Eyes: conjunctivae/corneas clear. PERRL, EOM's intact Throat: lips, mucosa, and tongue normal. MMM Neck: supple, symmetrical, trachea midline, and no JVD Lungs: Trach; Diffuse crackles and wheezes to auscultation bilaterally Heart: regular rate and rhythm, S1, S2 normal, no murmur, click, rub or gallop Abdomen: soft, non-tender, non-distended, bowel sounds normal; no masses or organomegaly Extremities: extremities normal, atraumatic, no cyanosis or edema Pulses: 2+ and symmetric Skin: skin color, texture, turgor normal; no rashes or lesions Neurologic: grossly normal, no focal deficits Assessment/Plan Problem List: (1) Seizure (2) Congestive heart failure (3) Anoxic brain injury (4) Dysphagia (5) Sacral decubitus ulcer (6) Leukocytosis (7) Severe sepsis (8) Pneumonia Assessment & Plan: Gram neg rods. Await ID and sensitivity. Cont vanco and zosyn per ID. See pulm note. (9) Chronic respiratory failure Assessment & Plan: Cont vent per pulmonary (10) Diabetes mellitus Assessment & Plan: Cont novolog sliding scale. Status: not improved JEAN CARLOS SANABRIA October 19, 2016 19:21
[2016-10-19 20:00] VITALS: BP 94/64
[2016-10-20] VITALS: BP 91/56
[2016-10-20] MEDS: Vancomycin 500 MG in NS 110 ML IVPB SCH ×2 (00:01→11:01)
[2016-10-20] MEDS: NovoLOG Insulin Flexpen SUBQ SCH ×4 (00:13→18:32)
[2016-10-20 04:00] VITALS: BP 95/70
[2016-10-20] MEDS: Piperacillin/Tazobactam 3.375 GM in NS 110 ML IVPB SCH ×2 (05:24→14:34)
[2016-10-20 05:40] LABS: MEAN CORPUSCULAR HEMOGLOBIN 33.3 PG (27.0-31.0); MEAN CORPUSCULAR HGB CONC 31.8 G/DL (32.0-36.0); MEAN CORPUSCULAR VOLUME 105 FL (80-99); MEAN PLATELET VOLUME 7.5 FL (6.5-10.1); PLATELET COUNT 190 K/UL (150-450); RED BLOOD COUNT 2.63 M/UL (4.70-6.10); RED CELL DISTRIBUTION WIDTH 20.4 % (11.6-14.8); WHITE BLOOD COUNT 13.8 K/UL (4.8-10.8)
[2016-10-20 06:15] LABS: ALANINE AMINOTRANSFERASE 147 U/L (3-41); ALBUMIN/GLOBULIN RATIO 0.4 (1.0-2.7); ANION GAP 15 (5-15); ASPARTATE AMINO TRANSFERASE 84 U/L (5-40); CARBON DIOXIDE 27 mEQ/L (20-30); CHLORIDE 108 mEQ/L (98-107); CREATININE 0.6 mg/dL (0.7-1.2); GLOMERULAR FILTRATION RATE > 60 mL/min (>60); HEMOLYSIS 0; MAGNESIUM 1.8 mg/dL (1.7-2.5); PHOSPHORUS 2.6 mg/dL (2.5-4.8); POTASSIUM 3.4 mEQ/L (3.4-4.9); SODIUM 150 mEQ/L (135-145); TOTAL PROTEIN 6.3 g/dL (6.6-8.7)
--- NOTE | 2016-10-20 07:56 | Infectious Diseases Prog Note ---
Assessment/Plan Assessment/Plan A: The patient is a 66-year-old male, with Sepsis Pneumonia chest x-ray: bilateral basilar pneumonia Leukocytosis - improved ( DVT contributing ) Fever SP Transaminitis - improved CT: Gallbladder is not visualized. Sacral decubitus, unstageable with eschar POA - surveillance Wnd Cx:GNR x 2 CONS Bacteremia 2/ ( single stick ) ? contaminant Acute BLE DVT Chronic VDRF Status post PEG Status post trach Diabetes History of cardiopulmonary arrest in the past. Peripheral vascular disease. Seizure disorder. CHF Anoxic brain injury Dysphagia History of neurogenic bladder. VRE colonized NKDA Full Code PLAN: continue the patient on IV Zosyn and vancomycin d# 3 Monitor CBC Monitor BMP Monitor cultures (blood, sputum, and urine). wound care vent support, trach care, aspiration precautions Subjective Allergies: Coded Allergies: No Known Allergies (Unverified , 10/17/16) Subjective fevers resolved, leukocytosis improved Objective Vital Signs Last 24 Hour Vital Signs Date Time Temp Pulse Resp B/P Pulse Ox O2 Delivery O2 Flow Rate FiO2 10/20/16 07:22 83 19 35 10/20/16 04:35 89 21 35 10/20/16 04:00 87 10/20/16 04:00 35 10/20/16 04:00 97.5 90 21 95/70 100 Mechanical Ventilator 35 10/20/16 03:15 88 18 35 10/20/16 01:24 84 18 35 10/20/16 00:00 35 10/20/16 00:00 86 10/20/16 00:00 97.3 88 17 91/56 98 Mechanical Ventilator 35 10/19/16 22:57 82 18 35 10/19/16 21:13 84 24 35 10/19/16 20:00 35 10/19/16 20:00 98.1 86 23 94/64 100 Mechanical Ventilator 35 10/19/16 19:23 84 10/19/16 19:09 84 22 35 10/19/16 16:53 95 20 35 10/19/16 16:00 98.0 86 21 95/61 100 Mechanical Ventilator 35 10/19/16 16:00 35 10/19/16 16:00 93 10/19/16 15:00 92 21 35 10/19/16 13:18 96 22 35 10/19/16 12:00 35 10/19/16 12:00 97.0 75 18 100/65 98 Mechanical Ventilator 35 10/19/16 11:46 85 10/19/16 11:17 93 21 35 10/19/16 09:05 90 19 35 10/19/16 08:06 97.9 88 22 98/61 98 Mechanical Ventilator 35 10/19/16 08:00 35 10/19/16 07:58 90 Height (Feet): 5 Height (Inches): 4.00 Weight (Pounds): 130 General Appearance: no acute distress Respiratory/Chest: no respiratory distress Cardiovascular: normal rate, regular rhythm Abdomen: normal bowel sounds, soft, non tender, non distended Microbiology Date/Time Source Procedure Growth Status 10/17/16 19:30 Blood Blood Culture - Preliminary Staphylococcus Sp Coag Neg Resulted 10/17/16 19:20 Blood Blood Culture - Preliminary NO GROWTH AFTER 48 HOURS Resulted 10/18/16 04:50 Sacral Swab Gram Stain - Final Resulted 10/18/16 04:50 Wound Culture - Preliminary Gram Negative Bacillus 1 Gram Negative Bacillus 2 Resulted 10/17/16 21:00 Rectum VRE Culture - Final Enterococcus Faecalis - Vre Complete Laboratory Tests Test 10/19/16 09:50 10/20/16 04:00 Vancomycin Level Trough 20.5 ug/mL (5.0-12.0) H White Blood Count 13.8 K/UL (4.8-10.8) H Red Blood Count 2.63 M/UL (4.70-6.10) L Hemoglobin 8.7 G/DL (14.2-18.0) L Hematocrit 27.5 % (42.0-52.0) L Mean Corpuscular Volume 105 FL (80-99) H Mean Corpuscular Hemoglobin 33.3 PG (27.0-31.0) H Mean Corpuscular Hemoglobin Concent 31.8 G/DL (32.0-36.0) L Red Cell Distribution Width 20.4 % (11.6-14.8) H Platelet Count 190 K/UL (150-450) Mean Platelet Volume 7.5 FL (6.5-10.1) Neutrophils (%) (Auto) % (45.0-75.0) Lymphocytes (%) (Auto) % (20.0-45.0) Monocytes (%) (Auto) % (1.0-10.0) Eosinophils (%) (Auto) % (0.0-3.0) Basophils (%) (Auto) % (0.0-2.0) Neutrophils % (Manual) Pending Lymphocytes % (Manual) Pending Platelet Estimate Pending Platelet Morphology Pending Sodium Level 150 mEQ/L (135-145) H Potassium Level 3.4 mEQ/L (3.4-4.9) Chloride Level 108 mEQ/L (98-107) H Carbon Dioxide Level 27 mEQ/L (20-30) Anion Gap 15 (5-15) Blood Urea Nitrogen 56 mg/dL (7-23) H Creatinine 0.6 mg/dL (0.7-1.2) L Estimat Glomerular Filtration Rate > 60 mL/min (>60) Glucose Level 232 mg/dL (74-106) H Calcium Level 8.0 mg/dL (8.6-10.2) L Phosphorus Level 2.6 mg/dL (2.5-4.8) Magnesium Level 1.8 mg/dL (1.7-2.5) Total Bilirubin 0.5 mg/dL (0.0-1.2) Aspartate Amino Transf (AST/SGOT) 84 U/L (5-40) H Alanine Aminotransferase (ALT/SGPT) 147 U/L (3-41) H Alkaline Phosphatase 190 U/L (40-129) H Total Protein 6.3 g/dL (6.6-8.7) L Albumin 1.9 g/dL (3.5-5.2) L Globulin 4.4 g/dL Albumin/Globulin Ratio 0.4 (1.0-2.7) L Current Medications Medications (Trade) Dose Ordered Sig/Yi Route PRN Reason Start Time Stop Time Status Last Admin Dose Admin Acetaminophen (Tylenol) 650 mg Q4H PRN ORAL FEVER 10/17/16 21:45 11/16/16 21:44 10/18/16 20:46 Albuterol/ Ipratropium (DuoNeb 0.5-3(2.5)mg/3ml) 3 ml Q4H PRN HHN Shortness of Breath 10/17/16 21:45 10/22/16 21:44 Dextrose STAT PRN IV Hypoglycemia 10/17/16 21:45 11/16/16 21:44 10/18/16 00:28 Heparin Sodium (Porcine) (Heparin 5000 units/ml) 5,000 units EVERY 12 HOURS SUBQ 10/18/16 22:00 11/17/16 21:59 10/19/16 21:38 Insulin Aspart (NovoLOG) EVERY 6 HOURS SUBQ 10/20/16 00:00 11/19/16 00:00 10/20/16 06:40 Lorazepam (Ativan 2mg/ml 1ml) 2 mg Q2H PRN IV For Anxiety 10/17/16 21:45 10/24/16 21:44 Morphine Sulfate (Morphine Sulfate) 4 mg Q4H PRN IVP Severe Pain (Pain Scale 7-10) 10/17/16 21:45 10/24/16 21:44 Ondansetron HCl (Zofran) 4 mg Q6H PRN IVP Nausea & Vomiting 10/17/16 21:45 11/16/16 21:44 Pantoprazole (Protonix) 40 mg DAILY IV 10/18/16 09:00 11/17/16 08:59 10/19/16 08:20 Piperacillin Sod/ Tazobactam Sod/ Sodium Chloride (Zosyn/Sodium Chloride) 110 ml @ 27.5 mls/hr Q8H IVPB 10/18/16 06:00 10/25/16 05:59 10/20/16 05:24 Polyethylene Glycol (Miralax) 17 gm DAILYPRN PRN ORAL Constipation 10/17/16 21:45 11/16/16 21:44 Vancomycin HCl 1 ea 1 ea DAILY PRN MISC PRN RX PROTOCOL 10/17/16 22:00 11/16/16 21:59 Vancomycin HCl/ Sodium Chloride (Vancomycin/ Sodium Chloride) 110 ml @ 110 mls/hr Q12HR@1100,2300 IVPB 10/19/16 23:00 10/24/16 22:59 10/20/16 00:01 MELONIE FRAZIER October 20, 2016 07:56
[2016-10-20 08:00] VITALS: BP 93/62
[2016-10-20] MEDS: Heparin 5000 units/ml inj SUBQ SCH (08:26)
[2016-10-20] MEDS: Pantoprazole Inj IV SCH (08:27)
[2016-10-20] MEDS ORDERED: Tubing IV Secondary IV ONE (09:42)
[2016-10-20] MEDS ORDERED: NS 275ml ONE ×2 (09:42→10:13)
[2016-10-20 10:14] LABS: BAND NEUTROPHILS % (MANUAL) 0 % (0-8); BASOPHILS % (MANUAL) 0 % (0-2); EOSINOPHILS % (MANUAL) 1 % (0-3); LYMPHOCYTES % (MANUAL) 10 % (20-45); MACROCYTES 1+; NEUTROPHILS % (MANUAL) 85 % (45-75); PLATELET ESTIMATE ADEQUATE; PLATELET MORPHOLOGY NORMAL; TOTAL CELLS COUNTED 100
[2016-10-20 10:15] LABS: ANISOCYTOSIS 2+
[2016-10-20 10:17] LABS: HYPOCHROMASIA 1+
--- NOTE | 2016-10-20 11:27 | Cardiology Report ---
APPROVED REPORT EKG Measurement Heart [id number] Unusual P axis, possible ectopic atrial tachycardia with premature atrial complexes Possible Anterior infarct, age undetermined Prolonged QT Abnormal ECG
[2016-10-20 11:30] VITALS: BP 97/64
[2016-10-20] MEDS ORDERED: Vanco pharmacy to dose MISC (13:16)
[2016-10-20] MEDS ORDERED: ZOSYN 3.373.375 GM/1 IVPB (13:16)
--- NOTE | 2016-10-20 13:22 | Discharge Summary ---
Discharge Summary Hospital Course Date of Admission October 17, 2016 at 19:53 Date of Discharge 10/20/16 Admitting Diagnosis Sepsis HPI Dakotah Oscar is a 66 year old male who was admitted on October 17, 2016 at 19 :53 for Sepsis Consultations IM, pulm Procedures no Hospital Course improved with abx, IVF maintained on vent Discharge Medications New Medications: Hcyrhcfmxpop-Iuwc-Odiwwtrw,Iso (Zosyn 3.375 Gm Pre Mix-Bag) 3.375 Gm/50 Ml Froz.piggy 3.375 GM IVPB EVERY 8 HOURS for 7 Days, BAG [Vanco pharmacy to dose] () 1 EA MISC 1 EA MISC DAILY PRN Continued Medications: Albuterol Sulfate* (Albuterol Sulfate Hhn*) 2.5 Mg/3 Ml Vial.neb 3 ML INH Q6H PRN for Shortness of Breath, #30 EA 0 Refills Insulin Lispro (Humalog) 100 Unit/1 Ml Cartridge 0 SUBQ EVERY 6 HOURS, #1 UNITS 0 Refills Lorazepam* (Ativan*) 2 Mg Tablet 2 MG ORAL EVERY 4 HOURS, TAB Discontinued Medications: Baclofen* (Baclofen*) 10 Mg Tablet 10 MG ORAL TID, TAB Discharge Condition Upon Discharge: improving Discharge Disposition Patient was discharged to snf Discharge Diagnoses: (1) Severe sepsis (2) Pneumonia (3) Acute on chronic respiratory failure (4) Diabetes mellitus (5) Dysphagia (6) Seizure LILIAN BARRY October 20, 2016 13:22
[2016-10-20 16:15] VITALS: BP 91/60
[2016-10-20 20:07] VITALS: BP 93/64
== END 2016-10-20 20:45 | DRG 871 ==
LOC: EDBD 19:18 → EMR 19:47 → 2W 19:53 → EDBEDREQ 20:12 → 2W 22:22
PROC: 5A1945Z Respiratory Ventilation, 24-96 Consecutive Hours (ICD-10-PCS; principal; 2016-10-17)
DX: A41.9 Sepsis, unspecified organism (principal); J18.9 Pneumonia, unspecified organism; J96.20 Acute and chronic respiratory failure, unspecified whether with hypoxia or hypercapnia; G93.1 Anoxic brain damage, not elsewhere classified; L89.150 Pressure ulcer of sacral region, unstageable; Z99.11 Dependence on respirator [ventilator] status; Z43.0 Encounter for attention to tracheostomy; Z86.74 Personal history of sudden cardiac arrest; I50.9 Heart failure, unspecified; Z43.1 Encounter for attention to gastrostomy; R65.20 Severe sepsis without septic shock; E11.9 Type 2 diabetes mellitus without complications; R13.10 Dysphagia, unspecified; Z79.4 Long term (current) use of insulin; I73.9 Peripheral vascular disease, unspecified; G40.909 Epilepsy, unspecified, not intractable, without status epilepticus
CPT/HCPCS: 36415; 71010; 74176; 80048; 80053; 80069; 80202; 81003; 82550; 82553; 82962; 83605; 83690; 83735; 83880; 84100; 84484; 85007; 85025; 85610; 85730; 86705; 86709; 86803; 87040; 87070; 87081; 87086; 87181; 87205; 87340; 93005; 93970; 94002; 94003; J1815